=== PATIENT | male | born 1990 | race Hispanic/Latino ===

== ENCOUNTER 2017-09-05 02:43 | Emergency (ER) | payer SELFPAY ==
[2017-09-05] MEDS ORDERED: TETANUS & DIPHTHERIA TOX,ADULT 0.5 ML VIAL ONE ×2 (03:15→03:22)
[2017-09-05] MEDS ORDERED: AMOX/K CLAV 875 MG TAB ONE (03:15)
[2017-09-05] MEDS ORDERED: IBUPROFEN 400 MG TAB ONE (03:30)
[2017-09-05] MEDS ORDERED: HYDROCODONE/APAP 10/325 TAB ONE (03:30)
[2017-09-05] MEDS ORDERED: IBUPROFEN 200 MG TAB PO ONE (03:31)
[2017-09-05] MEDS ORDERED: BACI/NEOMYCIN/POLY OINT 15GM TOP ONE (03:31)
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
--- NOTE | 2017-09-05 11:36 | RAD REPORT ---
EXAM DESCRIPTION: RAD - Wrist Left 3 View - 09/05/2017 3:54 am CLINICAL HISTORY: ANIMAL BITE Pain COMPARISON: No comparisons FINDINGS: No fracture or dislocation seen. No radiopaque foreign body. Mild soft tissue swelling se en along the dorsum of the wrist. IMPRESSION: Soft tissue swelling along the dorsum of the wrist.
== END 2017-09-05 05:34 | disposition home or self-care (01) ==
LOC: ER 02:43
DX: S61.532A Puncture wound without foreign body of left wrist, initial encounter (principal); W54.0XXA Bitten by dog, initial encounter; Y93.9 Activity, unspecified; Y92.9 Unspecified place or not applicable; Z23 Encounter for immunization; F17.210 Nicotine dependence, cigarettes, uncomplicated
CPT/HCPCS: 90714; 99283